=== PATIENT | male | born 1980 | race Caucasian/White ===

== ENCOUNTER → 2016-10-10 | Outpatient (CLI) | payer BC ==
[2016-04-24 17:19] VITALS: BP 151/99
[2016-10-10 07:35] LABS: BASOPHILS % (AUTO) 0.9 % (0.2-1.0); EOSINOPHILS # (AUTO) 0.1 x10^3/uL (0.0-0.2); EOSINOPHILS % (AUTO) 2.3 % (0.9-2.9); HEMOGLOBIN 16.1 g/dL (13.5-18.0); LYMPHOCYTES # (AUTO) 1.4 X10^3/uL (1.3-2.9); LYMPHOCYTES % (AUTO) 26.3 % (21.0-51.0); MEAN CORPUSCULAR HEMOGLOBIN 28.8 pg (27.0-34.0); MEAN CORPUSCULAR HGB CONC 35.1 g/dL (33.0-35.0); MEAN CORPUSCULAR VOLUME 82.1 fL (80.0-100.0); MONOCYTES # (AUTO) 0.3 x10^3/uL (0.3-0.8); MONOCYTES % (AUTO) 4.8 % (0.0-13.0); NEUTROPHILS # (AUTO) 3.6 x10^3/uL (2.2-4.8); NEUTROPHILS % (AUTO) 65.7 % (42.0-75.0); PLATELET COUNT 179 X10^3/uL (150.0-450.0); RED BLOOD COUNT 5.61 X10^6/uL (4.7-6.0); WHITE BLOOD COUNT 5.5 X10^3/uL (3.6-10.0)
[2016-10-10 07:48] LABS: ALANINE AMINOTRANSFERASE 29 Units/L (12-78); ALBUMIN 3.6 g/dL (3.4-5.0); ALKALINE PHOSPHATASE 80 Units/L (46-116); ASPARTATE AMINO TRANSFERASE 17 Units/L (15-37); BLOOD UREA NITROGEN 9 mg/dL (7-18); CALCIUM 8.3 mg/dL (8.5-10.1); CARBON DIOXIDE 24.6 mmol/L (21-32); CHLORIDE 108 mmol/L (98-107); CHOL/HDL RATIO 6.3 (0.0-5.0); CHOLESTEROL 150 mg/dL (0-200); COR NA(FOR HYPERGLY) 143 mmol/L (136-145); CREATININE 1.23 mg/dL (0.70-1.30); GLUCOSE 113 mg/dL (65-99); HDL CHOLESTEROL 24 mg/dL (40-60); SODIUM 143 mmol/L (136-145); TOTAL PROTEIN 6.4 g/dL (6.4-8.2); TRIGLYCERIDES 123 mg/dL (0-150); TSH (3RD GENERATION) 2.201 uIU/mL (0.358-3.74); eGFR BLACK RACES > 60 (>60); eGFR NON BLACK RACES > 60 (>60)
== END ==
LOC: LAB 07:07
DX: E27.49 Other adrenocortical insufficiency (principal); I10 Essential (primary) hypertension; E78.4 Other hyperlipidemia; E29.1 Testicular hypofunction
CPT/HCPCS: 36415; 80053; 80061; 82024; 82533; 82627; 82670; 83001; 83002; 84270; 84402; 84403; 84443; 85025

== ENCOUNTER → 2016-11-24 | Outpatient (CLI) | payer BC ==
[2016-04-24 17:19] VITALS: BP 151/99
--- NOTE | 2016-11-24 10:43 | MRI ---
STUDY: MRI OF THE BRAIN WITHOUT AND WITH GADOLINIUM History: Adrenal insufficiency. Comparison: None. Technique: Multiplanar multi-sequence MRI of the brain was obtained utilizing standard departmental protocol. Sagittal and axial T1, axial T2, FLAIR, diffusion (DWI/ADC) images through the brain were performed. 20 cc of Omniscan was administered without reported complication following acquisition of informed w ritten consent. Post gadolinium axial and coronal whole brain images were performed. Thin slice pre and post gadolinium T1, and coronal T2 weighted images through the level of pituitary gland were als o performed. Findings: Pre gadolinium brain: The sulci, cisterns, and ventricles are age appropriate. There is no evidence of acute territorial infarction, hemorrhage, mass, mass effect or midline shift. There are no abnorm al intra-axial or extra-axial fluid collections. The major intracranial vascular flow voids are inta ct. There is retention cyst in the sphenoid sinus on the left. Post gadolinium brain: Following the uneventful administration of intravenous gadolinium, there is n o evidence of abnormal brain parenchymal or leptomeningeal enhancement. MRI sella: High-resolution images through the sella turcica show no evidence of discrete mass or signal abnormality within the pituitary gland or adjacent structures. The infundibulum is in the midline. There is a normal posterior pituitary bright spot. There is no evidence of cavernous sinus invasion. The cavernous internal carotid artery flow voids are intact. The optic nerves and optic ch iasm are normal in appearance. There is no evidence of space-occupying lesion in this suprasellar ci toussaint. IMPRESSION: 1. No evidence of acute intracranial abnormality. 2. Normal appearing sella turcica and pituitary gland. Reported By:
== END ==
LOC: RAD 08:18
PROVIDERS: ATTEND Internal Medicine Endocrinology, Diabetes & Metabolism
DX: E27.49 Other adrenocortical insufficiency (principal)
CPT/HCPCS: 70553

== ENCOUNTER 2017-02-27 11:57 | Emergency (ER) | payer BC ==
[2017-02-27 12:05] VITALS: BMI 32.3
--- NOTE | 2017-02-27 12:05 | DR.CP ---
HPI - Time Seen Time seen: 12:03 - Complaint Chief Complaint:: PT STATES " I STARTED HAVING CHEST PAIN AROUND 1 AM AND IT STARTED AGAIN TODAY ".. - Reviewed Nurses Notes Review: Yes - Source History Provided: Patient - Mode of Arrival Mode of Arrival: Ambulatory - Timing Onset of Chief Complaint: 02/26/17 Came on: Gradually - Duration Duration: Intermittent How lon Duration: Hours - Location Chest Pain Radiation Location: None - Associated Signs and Symptoms Associated Signs and Symptoms: None PMH - PMH Past Medical History: Yes Past Medical History Comment: ADENAL INSUFICIENCY .. Past Surgical History: No Surgical History: Tonsillectomy - Family History History of Family Medical Conditions: Yes Family Medical History: OK - Social History Does patient currently use any type of tobacco product: No Have you used tobacco products in the last 12 months: No Type of Tobacco Use: None Does any household member use tobacco: No Alcohol Use: None Do you use any recreational Drugs:: No Lives With: Alone Lives Where: Home - infectious screening In the last 2 months have you had wt loss of >10#?: NO Have you had fever, night sweats or hemotysis?: No Have you traveled outside the country in the last 6 months?: No Isolation: Standard PE - Vitals Vitals: Pulse Rate 89 Respiratory Rate 22 Blood Pressure [Left Arm] 132/82 Blood Pressure 171/108 O2 Sat by Pulse Oximetry 100 ROR - EKG Rate: 75 [place]: Normal Rhythm: NSR Block: None Hypertrophy: None - Discharge Plan Condition: Stable - Follow ups/Referrals Follow ups/Referrals: [facility],None [Primary Care Provider] - 3 days - Instructions
[2017-02-27] MEDS ORDERED: CATAPRES TAB 0.2 MG PO ONE (12:06)
[2017-02-27] MEDS ORDERED: CATAPRES TAB 0.2 MG ONE (12:11)
--- NOTE | 2017-02-27 12:25 | RAD ---
HISTORY: Shortness of breath Study: Portable chest Comparison: None Findings: The trachea is midline. The cardiac silhouette is unremarkable. The lungs are clear without focal infiltrate or effusion. The bony thorax is unremarkable. IMPRESSION: 1. No acute cardiopulmonary disease. Reported By:
[2017-02-27 12:32] LABS: HEMATOCRIT 42.5 % (42.0-54.0); MEAN CORPUSCULAR VOLUME 82.5 fL (80.0-100.0); MONOCYTES # (AUTO) 0.2 x10^3/uL (0.3-0.8); RED CELL DISTRIBUTION WIDTH 13.2 % (11.6-16.5)
[2017-02-27 12:44] LABS: BASOPHILS % (AUTO) 0.4 % (0.2-1.0); EOSINOPHILS % (AUTO) 0.9 % (0.9-2.9); HEMOGLOBIN 15.5 g/dL (13.5-18.0); LYMPHOCYTES # (AUTO) 1.6 X10^3/uL (1.3-2.9); LYMPHOCYTES % (AUTO) 30.5 % (21.0-51.0); MEAN CORPUSCULAR HGB CONC 36.3 g/dL (33.0-35.0); MEAN PLATELET VOLUME 7.1 fL (7.4-11.0); MONOCYTES % (AUTO) 3.9 % (0.0-13.0); NEUTROPHILS # (AUTO) 3.5 x10^3/uL (2.2-4.8); NEUTROPHILS % (AUTO) 64.3 % (42.0-75.0); PLATELET COUNT 189 X10^3/uL (150.0-450.0); RED BLOOD COUNT 5.16 X10^6/uL (4.7-6.0); WHITE BLOOD COUNT 5.4 X10^3/uL (3.6-10.0)
[2017-02-27 12:48] LABS: ALANINE AMINOTRANSFERASE 22 Units/L (12-78); ALBUMIN 3.4 g/dL (3.4-5.0); ALKALINE PHOSPHATASE 78 Units/L (46-116); ASPARTATE AMINO TRANSFERASE 16 Units/L (15-37); BLOOD UREA NITROGEN 9 mg/dL (7-18); CARBON DIOXIDE 29.6 mmol/L (21-32); CHLORIDE 108 mmol/L (98-107); CKMB % 0.8 % (<4); COR NA(FOR HYPERGLY) 143 mmol/L (136-145); CREATINE KINASE 119 Units/L (39-308); CREATININE 1.26 mg/dL (0.70-1.30); GLUCOSE 120 mg/dL (65-99); MAGNESIUM 1.9 mg/dL (1.7-2.9); SODIUM 143 mmol/L (136-145); TOTAL PROTEIN 5.9 g/dL (6.4-8.2); TROPONIN I < 0.02 ng/mL (0-1.5); eGFR BLACK RACES > 60 (>60); eGFR NON BLACK RACES > 60 (>60)
[2017-02-27] MEDS ORDERED: K-DUR TAB 20 MEQ PO ONE ×2 (12:54→13:17)
[2017-02-27 14:01] VITALS: BP 130/71
== END 2017-02-27 13:57 | disposition home or self-care (01) ==
LOC: ER 12:05
DX: R07.89 Other chest pain (principal); E87.6 Hypokalemia; I10 Essential (primary) hypertension
CPT/HCPCS: 36415; 71010; 80053; 82550; 82553; 83735; 84484; 85025; 85610; 85730; 93005; 93010; 99282; 99283